=== PATIENT | male | born 1970 | race Caucasian/White ===

== ENCOUNTER 2017-08-29 16:49 | Emergency (ER) | payer SELFPAY ==
[2017-08-29 16:54] VITALS: BMI 30.9
--- NOTE | 2017-08-29 17:48 | DR.GENAD ---
HPI - PCP Primary Care Physician: jael - HPI Comment HPI Comment: Abdominal pain - Complaint/Symptoms Chief Complaint:: patient stated his lower abd has been hurting for 3 weeks. He characterizes this as a sharp and constant pain. THere is no assocaiated fever nausea or vomitting. - Nurses notes reviewed Nurses Notes Review: Yes - Source History Provided: Patient - Mode of Arrival Mode of Arrival: Ambulatory - Timing Onset of Chief Complaint: 08/01/17 - Severity Severity: Moderate - Modifying Factors Worsens:: nothing Improves:: nothing PMH - PMH Past Medical History: Yes Past Medical History Comment: Diverticulitis Past Surgical History: Yes Surgical History: Cholecystectomy, Other Past Surgical History Comment: hernia - Family History History of Family Medical Conditions: No - Social History Does patient currently use any type of tobacco product: Yes Have you used tobacco products in the last 12 months: Yes Type of Tobacco Use: Cigarettes How many years tobacco product used: 20 Does any household member use tobacco: No Alcohol Use: None Do you use any recreational Drugs:: No Lives With: Family Lives Where: Home - infectious screening In the last 2 months have you had wt loss of >10#?: NO Have you had fever, night sweats or hemotysis?: No Have you traveled outside the country in the last 6 months?: No Isolation: Standard ROS - Review of Systems Constitutional: No Symptoms Reported Eyes: No Symptoms Reported ENTM: No Symptoms Reported Respiratoy: No Symptoms Reported Cardiovascular: No Symptoms Reported Gastrointestinal/Abdominal: Abdominal Pain (Lt sided) Genitourinary: No Symptoms Reported Neurological: No Symptoms Reported Musculoskeletal: No Symptoms Reported Integumentary: No Symptoms Reported Hematologic/Lymphatic: No Symptoms Reported Endocrine: No Symptoms Reported Psychiatric: No Symptoms Reported All Other Systems: Reviewed and Negative PE - Vital Signs Vitals: Temperature 98.9 F Pulse Rate 67 Respiratory Rate 18 Blood Pressure 151/83 O2 Sat by Pulse Oximetry 100 - General Limitations: No Limitations General Appearance: Alert, In No Apparent Distress - Head Head Exam: Normal Inspection - Eyes Eye exam: Normal Appearance - ENT ENT Exam: Normal Exam - Neck Neck Exam: Normal Inspection - Chest Chest Inspection: Normal Inspection - Respiratory Respiratory Exam: Normal Lung Sounds Bilat - Cardiovascular Cardiovascular Exam: Regular Rate, Normal Rhythm - Abdominal Exam Abdominal Exam: Normal Inspection, Normal Bowel Sounds, Soft, Tenderness (Lt. sided) Abdominal Tenderness: LUQ, LLQ - Extremities Extremities Exam: Normal Inspection - Back Back Exam: Normal Inspection - Neurologic Neurological Exam: Alert, Oriented X3 - Psychiatric Psychiatric Exam: Normal Affect, Normal Mood - Skin Skin Exam: Warm, Dry, Intact, Normal Color Course - Reevaluation 1st: Improved - Education/Counseling Education/Counseling: Patient, Family, Education Educated On: Treatment, Diagnosis, Needs for Follow Up ROR - Labs Reviewed Result Diagrams: 08/29/17 17:50 08/29/17 17:50 Laboratory: WBC 6.0 X10^3/uL (3.6-10.0) 08/29/17 17:50 RBC 4.56 X10^6/uL (4.7-6.0) L 08/29/17 17:50 Hgb 14.8 g/dL (13.5-18.0) 08/29/17 17:50 Hct 42.5 % (42.0-54.0) 08/29/17 17:50 MCV 93.2 fL (80.0-100.0) 08/29/17 17:50 MCH 32.5 pg (27.0-34.0) 08/29/17 17:50 MCHC 34.8 g/dL (33.0-35.0) 08/29/17 17:50 RDW 13.7 % (11.6-16.5) 08/29/17 17:50 Plt Count 230 X10^3/uL (150.0-450.0) 08/29/17 17:50 MPV 7.9 fL (7.4-11.0) 08/29/17 17:50 Neut % 55.8 % (42.0-75.0) 08/29/17 17:50 Lymph % 34.8 % (21.0-51.0) 08/29/17 17:50 Pickett % 4.9 % (0.0-13.0) 08/29/17 17:50 Eos % 3.9 % (0.9-2.9) H 08/29/17 17:50 Baso % 0.6 % (0.2-1.0) 08/29/17 17:50 Neut # 3.4 x10^3/uL (2.2-4.8) 08/29/17 17:50 Lymph # 2.1 X10^3/uL (1.3-2.9) 08/29/17 17:50 Pickett # 0.3 x10^3/uL (0.3-0.8) 08/29/17 17:50 Eos # 0.2 x10^3/uL (0.0-0.2) 08/29/17 17:50 Baso # 0.0 X10^3/uL (0.0-0.1) 08/29/17 17:50 Absolute Nucleated RBC 0.1 /100WBC 08/29/17 17:50 Sodium 138 mmol/L (136-145) 08/29/17 17:50 Corrected Sodium TNP 08/29/17 17:50 Potassium 4.6 mmol/L (3.5-5.1) 08/29/17 17:50 Chloride 103 mmol/L (98-107) 08/29/17 17:50 Carbon Dioxide 30.0 mmol/L (21-32) 08/29/17 17:50 BUN 15 mg/dL (7-18) 08/29/17 17:50 Creatinine 1.03 mg/dL (0.70-1.30) 08/29/17 17:50 Est GFR (MDRD) Af Amer > 60 (>60) 08/29/17 17:50 Est GFR (MDRD) Non-Af > 60 (>60) 08/29/17 17:50 Glucose 95 mg/dL (65-99) 08/29/17 17:50 Calcium 9.3 mg/dL (8.5-10.1) 08/29/17 17:50 Corrected Calcium TNP 08/29/17 17:50 Total Bilirubin 0.20 mg/dL (0.2-1.0) 08/29/17 17:50 AST 24 Units/L (15-37) 08/29/17 17:50 ALT 37 Units/L (12-78) 08/29/17 17:50 Alkaline Phosphatase 58 Units/L (46-116) 08/29/17 17:50 Total Protein 7.4 g/dL (6.4-8.2) 08/29/17 17:50 Albumin 3.7 g/dL (3.4-5.0) 08/29/17 17:50 Globulin 3.7 g/dL (2.5-4.5) 08/29/17 17:50 Albumin/Globulin Ratio 1.0 Ratio (1.1-2.1) L 08/29/17 17:50 Specimen Type Clean catch urine 08/29/17 18:47 Urine Color Yellow (YELLOW) 08/29/17 18:47 Urine Appearance Hazy (CLEAR) 08/29/17 18:47 Urine pH 8.0 (5.0 - 8.0) 08/29/17 18:47 Ur Specific Warren 1.015 (1.000-1.030) 08/29/17 18:47 Urine Protein Negative (NEGATIVE) 08/29/17 18:47 Urine Glucose (UA) Negative (NEGATIVE) 08/29/17 18:47 Urine Ketones Negative (NEGATIVE) 08/29/17 18:47 Urine Occult Blood Negative (NEGATIVE) 08/29/17 18:47 Urine Nitrite Negative (NEGATIVE) 08/29/17 18:47 Urine Bilirubin Negative (NEGATIVE) 08/29/17 18:47 Urine Urobilinogen Normal (NORMAL) 08/29/17 18:47 Ur Leukocyte Esterase 1+ (NEGATIVE) 08/29/17 18:47 Urine RBC 0-2 /HPF (NEGATIVE) 08/29/17 18:47 Urine WBC 0-2 /HPF (NEGATIVE) 08/29/17 18:47 Ur Squamous Epith Cells Negative /HPF (NEGATIVE) 08/29/17 18:47 Amorphous Sediment 3+ /HPF (NEGATIVE) 08/29/17 18:47 Urine Bacteria Trace /HPF (NEGATIVE) 08/29/17 18:47 Ur Culture Indicated? No/not indicated 08/29/17 18:47 - XRAY XRAY Interpreted by: Radiologist XRAY Findings: No CT evidence of acute abdominal/pelvic pathology. - Diagnosis Discharge Problem: Abdominal pain - Discharge Plan Disposition: 01 HOME, SELF-CARE Condition: Stable - Follow ups/Referrals Follow ups/Referrals: [facility],None [Primary Care Provider] - 3 days - Instructions
[2017-08-29] MEDS ORDERED: D5 1/2 NS 1000 ML 1,000 ML IV ONE (17:50)
[2017-08-29] MEDS ORDERED: D5 1/2 NS 1000 ML 1,000 ML IV SCH (18:00)
[2017-08-29 18:12] LABS: ALANINE AMINOTRANSFERASE 37 Units/L (12-78); ALBUMIN 3.7 g/dL (3.4-5.0); ALKALINE PHOSPHATASE 58 Units/L (46-116); ASPARTATE AMINO TRANSFERASE 24 Units/L (15-37); BLOOD UREA NITROGEN 15 mg/dL (7-18); CALCIUM 9.3 mg/dL (8.5-10.1); CHLORIDE 103 mmol/L (98-107); CREATININE 1.03 mg/dL (0.70-1.30); SODIUM 138 mmol/L (136-145); TOTAL PROTEIN 7.4 g/dL (6.4-8.2); eGFR BLACK RACES > 60 (>60); eGFR NON BLACK RACES > 60 (>60)
[2017-08-29 18:26] LABS: BASOPHILS % (AUTO) 0.6 % (0.2-1.0); EOSINOPHILS # (AUTO) 0.2 x10^3/uL (0.0-0.2); EOSINOPHILS % (AUTO) 3.9 % (0.9-2.9); HEMATOCRIT 42.5 % (42.0-54.0); HEMOGLOBIN 14.8 g/dL (13.5-18.0); LYMPHOCYTES # (AUTO) 2.1 X10^3/uL (1.3-2.9); LYMPHOCYTES % (AUTO) 34.8 % (21.0-51.0); MEAN CORPUSCULAR HEMOGLOBIN 32.5 pg (27.0-34.0); MEAN CORPUSCULAR HGB CONC 34.8 g/dL (33.0-35.0); MEAN CORPUSCULAR VOLUME 93.2 fL (80.0-100.0); MEAN PLATELET VOLUME 7.9 fL (7.4-11.0); MONOCYTES # (AUTO) 0.3 x10^3/uL (0.3-0.8); MONOCYTES % (AUTO) 4.9 % (0.0-13.0); NEUTROPHILS # (AUTO) 3.4 x10^3/uL (2.2-4.8); NEUTROPHILS % (AUTO) 55.8 % (42.0-75.0); PLATELET COUNT 230 X10^3/uL (150.0-450.0); RED BLOOD COUNT 4.56 X10^6/uL (4.7-6.0); RED CELL DISTRIBUTION WIDTH 13.7 % (11.6-16.5)
[2017-08-29 18:55] LABS: BILIRUBIN,URINE NEGATIVE (NEGATIVE); BLOOD/HEMOGLOBIN,URINE NEGATIVE (NEGATIVE); GLUCOSE, URINE NEGATIVE (NEGATIVE); KETONES,URINE NEGATIVE (NEGATIVE); LEUKOCYTE ESTERASE ,URINE 1+ (NEGATIVE); NITRITES,URINE NEGATIVE (NEGATIVE); PROTEIN,URINE NEGATIVE (NEGATIVE); UROBILINOGEN,URINE NORMAL (NORMAL)
[2017-08-29 19:09] LABS: AMORPHOUS SEDIMENT,UR 3+ /HPF (NEGATIVE); APPEARANCE,URINE HAZY (CLEAR); BACTERIA,URINE TRACE /HPF (NEGATIVE); COLOR,URINE YELLOW (YELLOW); RBC,URINE 0-2 /HPF (NEGATIVE); SQUAMOUS EPITHELIAL CELL,UR NEGATIVE /HPF (NEGATIVE)
[2017-08-29] MEDS ORDERED: NS 100 ML IV 100 ML IV ONE (19:23)
[2017-08-29] MEDS ORDERED: DILAUDID INJ IVP ONE (19:37)
[2017-08-29] MEDS ORDERED: ZOFRAN INJ 4 MG VIAL ONE (20:23)
[2017-08-29] MEDS ORDERED: ZOFRAN INJ 4 MG VIAL IVP ONE (20:23)
[2017-08-29] MEDS ORDERED: DILAUDID INJ ONE (20:24)
--- NOTE | 2017-08-29 20:33 | CT ---
HISTORY: Lower abdominal pain for 3 weeks. History of diverticulitis. Study: CT abdomen and pelvis with contrast Comparison: None. Technique: Multiple axial images of the abdomen and pelvis were obtained from the lung bases to the pubic symphy sis after the administration of IV contrast. Dose reduction techniques including Automated Exposure Control (AEC) and adjustment of mA and kV were utilized. Findings: The visualized portions of the lung bases are unremarkable. The liver, spleen, pancreas, kidneys, an d adrenal glands are unremarkable in their CT appearance. The gallbladder is surgically absent. No s ignificant mesenteric lymphadenopathy or stranding can be observed. No free fluid or free air is see n within the abdomen. Somewhat limited evaluation of the bowel secondary to lack of complete opacifi cation. No significant diverticular disease. Remaining large and small bowel appear normal. The appen rhett appears normal. Calcifications are seen within the prostate gland that otherwise appears normal. The urinary bladder is grossly unremarkable. Degenerative changes of the spine. No aggressive osseou s lesions. IMPRESSION: No CT evidence of acute abdominal/pelvic pathology. Reported By:
[2017-08-29] MEDS ORDERED: CIPRO TAB 500 MG PO ONE ×2 (20:42→20:44)
[2017-08-29 20:59] VITALS: BP 132/86
== END 2017-08-29 20:59 | disposition home or self-care (01) ==
LOC: ER 16:56
DX: R10.12 Left upper quadrant pain (principal)
CPT/HCPCS: 36415; 74177; 80053; 81001; 85025; 96365; 96367; 96374; 96375; 99283; A4222; J1170; J2405; J7042